=== PATIENT | female | born 1990 ===

== ENCOUNTER 2022-12-23 14:38 | Outpatient (CLI) | payer OTHER | END 2022-12-23 16:00 | disposition home or self-care (01) | LOC: PRENATAL 14:38 | PROVIDERS: ATTEND Obstetrics & Gynecology Maternal & Fetal Medicine | DX: O35.9XX0 Maternal care for (suspected) fetal abnormality and damage, unspecified, not applicable or unspecified (principal); O35.3XX0 Maternal care for (suspected) damage to fetus from viral disease in mother, not applicable or unspecified; Z3A.25 25 weeks gestation of pregnancy ==

== ENCOUNTER 2023-03-28 15:30 | Inpatient (IN) | payer OTHER ==
[~2023-03-28] VITALS: Ht 160 cm; Wt 3.2 kg
[2023-04-04] MEDS ORDERED: PRENATAL TABLE1 EAC1 PO (12:12)
== END 2023-04-07 12:42 | disposition home or self-care (01) | DRG 788 ==
LOC: OB/GYN 04-04 11:50 → LDR 04-04 11:50 → OB/GYN 04-04 15:30
PROVIDERS: ADMIT Obstetrics & Gynecology; ATTEND Obstetrics & Gynecology
PROC: 4A1HXCZ Monitoring of Products of Conception, Cardiac Rate, External Approach (ICD-10-PCS; 2023-04-04)
PROC: 10D00Z1 Extraction of Products of Conception, Low, Open Approach (ICD-10-PCS; principal; 2023-04-04 17:00)
DX: O36.8130 Decreased fetal movements, third trimester, not applicable or unspecified (principal); O42.02 Full-term premature rupture of membranes, onset of labor within 24 hours of rupture; Z3A.40 40 weeks gestation of pregnancy; Z37.0 Single live birth; Z20.822 Contact with and (suspected) exposure to COVID-19